=== PATIENT | male | born 1975 | race African-American/Black ===

== ENCOUNTER 2021-10-08 11:34 | Emergency (ER) | payer BC, OTHER ==
[2021-10-08] MEDS ORDERED: Ondansetron ODT 4 MG TAB ONE (12:20)
[2021-10-08] MEDS ORDERED: Ibuprofen 400 MG TAB ONE (12:20)
== END 2021-10-08 12:55 | disposition home or self-care (01) ==
LOC: MADERS 11:34
DX: B34.9 Viral infection, unspecified (principal); R11.2 Nausea with vomiting, unspecified
CPT/HCPCS: 99283; Q0162

== ENCOUNTER 2023-06-30 12:29 | Emergency (ER) | payer OTHER ==
[2023-06-30] MEDS ORDERED: Ibuprofen 800 MG TAB ONE (13:03)
== END 2023-06-30 13:55 | disposition home or self-care (01) ==
LOC: MADERS 12:29
DX: T22.211A Burn of second degree of right forearm, initial encounter (principal); T22.111A Burn of first degree of right forearm, initial encounter; T31.0 Burns involving less than 10% of body surface; X12.XXXA Contact with other hot fluids, initial encounter
CPT/HCPCS: 99283

== ENCOUNTER 2023-07-10 16:23 | Emergency (ER) | payer OTHER | END 2023-07-10 17:00 | disposition home or self-care (01) | LOC: MADERS 16:23 | DX: K64.4 Residual hemorrhoidal skin tags (principal) | CPT/HCPCS: 99283 ==

== ENCOUNTER 2024-04-30 19:56 | Emergency (ER) | payer OTHER ==
[2024-04-30] MEDS ORDERED: Bupivacaine PF 0.5% 30 ML VIAL ONE (21:08)
== END 2024-04-30 21:35 | disposition home or self-care (01) ==
LOC: MADERS 19:56
DX: K04.7 Periapical abscess without sinus (principal)
CPT/HCPCS: 64400; 99282; J0665

== ENCOUNTER 2024-10-17 12:15 | Emergency (ER) | payer OTHER ==
[2024-10-17] MEDS ORDERED: Lidocaine 1% PF 5 ML VIAL ONE (13:42)
[2024-10-17] MEDS ORDERED: Cephalexin 500 MG CAP ONE (14:06)
[2024-10-17] MEDS ORDERED: Bacitracin 1 PK ONE (14:06)
[2024-10-17] MEDS ORDERED: Boostrix 0.5 ML (Tdap) VIAL (>/=7 yrs of age) ONE (14:07)
== END 2024-10-17 15:32 | disposition home or self-care (01) ==
LOC: MADERS 12:15
DX: S62.600B Fracture of unspecified phalanx of right index finger, initial encounter for open fracture (principal); Z23 Encounter for immunization; W31.2XXA Contact with powered woodworking and forming machines, initial encounter; Y93.89 Activity, other specified
CPT/HCPCS: 12002; 64450; 90471; 90715